=== PATIENT | male | born 1940 | race Caucasian/White ===

== ENCOUNTER 2016-11-03 15:00 | Emergency (ER) | payer MEDICARE, OTHER ==
[2016-11-03 15:31] VITALS: BP 117/63
--- NOTE | 2016-11-03 15:56 | UC ---
Ear Complaint HPI - HPI Summary HPI Summary: patient woke up with bloody drainage out of his left ear, and cannot hear out of the ear., denies trauma or cold symtpoms - History of Current Complaint Chief Complaint: UCEar Stated Complaint: EAR PAIN Time Seen by Provider: 11/03/16 15:30 Hx Obtained From: Patient Onset/Duration: Sudden Onset, Lasting Hours Severity Initially: Moderate Severity Currently: Moderate Associated Signs/Symptoms: Positive: Discharge, Hearing Loss - Allergies/Home Medications Allergies/Adverse Reactions: Allergies Allergy/AdvReac Type Severity Reaction Status Date / Time Silver Sulfadiazine Allergy Rash Verified 12/29/14 16:10 [From Silvadene] Home Medications: Home Medications Metoprolol Tartrate TAB* [Lopressor TAB*] 25 mg PO DAILY 11/03/16 [History Confirmed 11/03/16] Warfarin TAB(*) [Coumadin TAB(*)] 4 mg PO 1700 11/03/16 [History Confirmed 11/03] PMH/Surg Hx/FS Hx/Imm Hx Previously Healthy: Yes - Surgical History Surgical History: Yes Surgery Procedure, Year, and Place: eye surgery. tonsilectomy - Family History Known Family History: Positive: Hypertension - Social History Alcohol Use: None Substance Use Type: None Smoking Status (MU): Former Smoker Type: Cigarettes When Did the Patient Quit Smoking/Using Tobacco: 40 years ago - Immunization History Most Recent Influenza Vaccination: 2012 Review of Systems Constitutional: Negative Skin: Negative Eyes: Negative ENT: Ear Ache Respiratory: Negative Cardiovascular: Negative Gastrointestinal: Negative Genitourinary: Negative Motor: Negative Neurovascular: Negative Musculoskeletal: Negative Neurological: Negative Psychological: Negative All Other Systems Reviewed And Are Negative: Yes Physical Exam Triage Information Reviewed: Yes Appearance: Well-Appearing, Well-Nourished, Pain Distress Vital Signs: Initial Vital Signs Temp 98.7 F 11/03/16 15:29 Pulse 74 11/03/16 15:29 Resp 16 11/03/16 15:29 BP 117/63 11/03/16 15:29 Pulse Ox 97 11/03/16 15:29 Vital Signs Reviewed: Yes Eye Exam: Normal ENT Exam: Normal ENT: Positive: TMs normal - right, Other: - blood noted behind TM and in the external canal Dental Exam: Normal Neck exam: Normal Respiratory Exam: Normal Cardiovascular Exam: Normal Cardiovascular: Positive: RRR, No Murmur, Pulses Normal Abdominal Exam: Normal Bowel Sounds: Positive: Present Musculoskeletal Exam: Normal Musculoskeletal: Positive: Strength Intact, ROM Intact, No Edema Neurological Exam: Normal Neurological: Positive: Alert, Muscle Tone Normal Psychological Exam: Normal Skin: Positive: Other - no unusal brusining noted Ear Complaint Course/Dx - Course Course Of Treatment: hx obtained, exam performed ,meds reviewed, consulted with Dr Barrera about management, recommend follow up with PCP - Differential Dx/Diagnosis Differential Diagnosis/HQI/PQRI: Cellulitis, Cerumen Impaction, Otitis Media, Perforated TM, Pharyngitis, Trauma Provider Diagnoses: left ear pain. bloody drainage from hear. hearing loss Discharge - Discharge Plan Condition: Stable Disposition: HOME Patient Education Materials: Earache (ED) Referrals: Guilherme Rehman MD [Primary Care Provider] - Additional Instructions: 1. Follow up with Dr Rehman in the morning 2. You will probably be referred to ENT 3. Warm compresses and tylenol for any pain 4. Clean out any visible bloody drainage, but do not stick anything in the ear canal itself. 5. If you develop any dizzyness, or increase in bleeding report to the ER
== END 2016-11-03 15:56 | disposition home or self-care (01) ==
LOC: UCCORT 15:00
DX: H92.02 Otalgia, left ear (principal); H92.22 Otorrhagia, left ear; H91.92 Unspecified hearing loss, left ear
CPT/HCPCS: 99211; G0463

== ENCOUNTER 2016-11-21 15:06 | Emergency (ER) | payer MEDICARE, OTHER ==
--- NOTE | 2016-11-21 16:39 | UC ---
Respiratory Complaint HPI - HPI Summary HPI Summary: "Coughing and spitting up phlegm/blood". Pt states he hasn't felt well since he ruptured bilat ears about 2 weeks ago. Cough started 1 week ago, progressively getting worse. Now coughing up sputum and noticed blood-tinged sputum yesterday while coughing. Also feeling hot/cold on/off this past week. Last night took some mucinex. [ End ] - History of Current Complaint Chief Complaint: UCRespiratory Stated Complaint: COUGH/RESTLESS Time Seen by Provider: 11/21/16 16:32 Hx Obtained From: Patient Onset/Duration: Gradual Onset Timing: Constant Severity Initially: Mild Severity Currently: Moderate Character: Cough: Productive Associated Signs And Symptoms: Positive: Negative - Risk Factors Pulmonary Embolism Risk Factors: Negative Cardiac Risk Factors: Negative Pseudomonas Risk Factors: Negative Tuberculosis Risk Factors: Negative - Allergies/Home Medications Allergies/Adverse Reactions: Allergies Allergy/AdvReac Type Severity Reaction Status Date / Time Ibuprofen Allergy See Comment Verified 11/21/16 16:18 Meloxicam Allergy See Comment Verified 11/21/16 16:18 Silver Sulfadiazine Allergy Rash Verified 11/21/16 16:18 [From Silvadene] PMH/Surg Hx/FS Hx/Imm Hx Previously Healthy: Yes - Surgical History Surgical History: Yes Surgery Procedure, Year, and Place: eye surgery. tonsilectomy - Family History Known Family History: Positive: Hypertension - Social History Occupation: Retired Alcohol Use: None Substance Use Type: None Smoking Status (MU): Former Smoker Type: Cigarettes When Did the Patient Quit Smoking/Using Tobacco: 40 years ago - Immunization History Most Recent Influenza Vaccination: 2016 Most Recent Tetanus Shot: UTD Most Recent Pneumonia Vaccination: UTD Review of Systems Constitutional: Fever, Fatigue Skin: Negative Eyes: Negative ENT: Negative Respiratory: Cough Cardiovascular: Negative Gastrointestinal: Negative Genitourinary: Negative Motor: Negative Neurovascular: Negative Musculoskeletal: Negative Neurological: Negative Psychological: Negative All Other Systems Reviewed And Are Negative: Yes Physical Exam Triage Information Reviewed: Yes Appearance: Well-Appearing, No Pain Distress, Well-Nourished Vital Signs Reviewed: Yes Eye Exam: Normal ENT Exam: Normal Dental Exam: Normal Neck exam: Normal Neck: Positive: 1 Respiratory Exam: Normal Respiratory: Positive: Lungs clear, Normal breath sounds, No respiratory distress, Decreased breath sounds Cardiovascular Exam: Normal Musculoskeletal Exam: Normal Neurological Exam: Normal Psychological Exam: Normal Skin Exam: Normal Respiratory Course/Dx - Course Course Of Treatment: GO to ED. Spoke with Domonique CHANG in the ED . Pt agreeable - Differential Dx/Diagnosis Differential Diagnosis/HQI/PQRI: Bronchitis, Lower Resp Infection, Sinusitis Provider Diagnoses: Pneumonia bilateral Discharge - Discharge Plan Condition: Good Disposition: AGAINST MEDICAL ADVICE Patient Education Materials: Pneumonia (ED) Referrals: Guilherme Rehman MD [Primary Care Provider] - 3 Days Additional Instructions: Go directly to the ED at [place] thank you .
--- NOTE | 2016-11-21 17:16 | RAD ---
INDICATION: Cough. COMPARISON: Comparison is made with a prior chest x-ray study from April 02, 2008. TECHNIQUE: Dual-energy PA and lateral views of the chest were obtained. FINDINGS: The heart is within normal limits in size. The thoracic aorta is tortuous and ectatic. There is prominence of the interstitial markings and bilateral patchy and nodular infiltrates. No pleural effusion is seen. IMPRESSION: BILATERAL PATCHY AND NODULAR INFILTRATES. RECOMMEND FOLLOW-UP CHEST X-RAYS TO RESOLUTION.
[2016-11-21 17:22] VITALS: BP 120/65
== END 2016-11-21 17:41 | disposition left against medical advice (07) ==
LOC: UCCORT 15:06
DX: J18.9 Pneumonia, unspecified organism (principal); Z88.6 Allergy status to analgesic agent; Z87.891 Personal history of nicotine dependence
CPT/HCPCS: 71020; 99212; G0463